=== PATIENT | female | born 1995 | race Caucasian/White ===

== ENCOUNTER → 2017-06-11 | Outpatient (CLI) | payer BC ==
[~2017-06-11] MED LIST: ASCO100T PO; B COCAP3 PO; CHOL100010 PO; MESA1.2T PO; MISCCAP80 PO; MULT-506 PO
[2017-06-11 17:14] LABS: ALT/SGPT 23 U/L (12-78); AST/SGOT 12 U/L (15-37); BLOOD UREA NITROGEN 11 mg/dl (7-18); BUN/CREATININE RATIO 18.2 (10-20); CALCIUM 8.6 mg/dl (8.5-10.1); CARBON DIOXIDE 26 mmol/L (21-32); CHLORIDE 108 mmol/L (98-107); CREATININE 0.62 mg/dl (0.60-1.20); GLUCOSE 81 mg/dl (70-99); POTASSIUM 4.5 mmol/L (3.5-5.1); SODIUM 141 mmol/L (136-145)
[2017-06-11 17:17] LABS: ALB/GLOB RATIO 0.9 (0.9-2); ALKALINE PHOSPHATASE 65 U/L (45-117); C-REACTIVE PROTEIN < 0.29 mg/dl (0-0.29)
[2017-06-11 17:28] LABS: HEMATOCRIT 25.4 % (37-47); MEAN CELL VOLUME 75.6 fL (80-100); MEAN CORPUSCULAR HEMOGLOBIN 21.1 pg (25-34); MEAN PLATELET VOLUME 8.9 fL (7.4-10.4); PLATELET COUNT 367 K/uL (130-400); RED BLOOD COUNT 3.36 M/uL (4.2-5.4); WHITE BLOOD COUNT 3.95 K/uL (4.8-10.8)
[2017-06-11 17:30] LABS: ANISOCYTOSIS PRESENT; BASO % 0.5 %; BASO ABS # 0.02 K/uL (0-0.2); COMPLETE YES; EOS % 12.4 %; HYPOCHROMIA PRESENT; IG% 0.3 %; LYMPH % 33.2 %; LYMPH ABS # 1.31 K/uL (1.2-3.4); MONO % 13.4 %; NEUT % 40.2 %; POLYCHROMASIA 1+
== END | disposition home or self-care (01) ==
LOC: C.LAB1850 15:28
PROVIDERS: ATTEND Internal Medicine
DX: K50.80 Crohn's disease of both small and large intestine without complications (principal)

== ENCOUNTER → 2018-02-11 | Outpatient (CLI) | payer OTHER ==
[~2018-02-11] MED LIST changes: -ASCO100T PO; +ASCO100T4 PO
[2018-02-11 17:17] LABS: HEMATOCRIT 37.2 % (37-47); MEAN CELL VOLUME 87.9 fL (80-100); MEAN CORPUSCULAR HEMOGLOBIN 30.7 pg (25-34); MEAN CORPUSCULAR HGB CONC 34.9 g/dl (32-36); MEAN PLATELET VOLUME 8.4 fL (7.4-10.4); PLATELET COUNT 370 K/uL (130-400); RED CELL DISTRIBUTION WIDTH CV 12.5 % (11.5-14.5); RED CELL DISTRIBUTION WIDTH SD 40.2 fL (36.4-46.3); WHITE BLOOD COUNT 12.45 K/uL (4.8-10.8)
[2018-02-11 17:48] LABS: BASO % 0.3 %; BASO ABS # 0.04 K/uL (0-0.2); EOS % 4.1 %; EOS ABS # 0.51 K/uL (0-0.5); IG# 0.13 K/uL (0.00-0.02); LYMPH ABS # 1.37 K/uL (1.2-3.4); MONO % 6.6 %; MONO ABS # 0.82 K/uL (0.11-0.59); NEUT ABS # 9.58 K/uL (1.4-6.5)
[2018-02-11 17:52] LABS: ALBUMIN 2.8 gm/dl (3.4-5.0); ALT/SGPT 17 U/L (12-78); AST/SGOT 11 U/L (15-37); BLOOD UREA NITROGEN 4 mg/dl (7-18); CARBON DIOXIDE 25 mmol/L (21-32); CREATININE 0.57 mg/dl (0.60-1.20); GLUCOSE 161 mg/dl (70-99); POTASSIUM 3.8 mmol/L (3.5-5.1); SODIUM 136 mmol/L (136-145)
[2018-02-11 17:57] LABS: ALKALINE PHOSPHATASE 83 U/L (45-117); TOTAL PROTEIN 6.7 gm/dl (6.4-8.2)
== END | disposition home or self-care (01) ==
LOC: C.LAB1850 16:19
PROVIDERS: ATTEND Physician Assistant
DX: K50.80 Crohn's disease of both small and large intestine without complications (principal)

== ENCOUNTER → 2018-04-21 | Outpatient (CLI) | payer OTHER ==
[2018-04-21 13:06] LABS: HEMATOCRIT 32.6 % (37-47); HEMOGLOBIN 9.9 g/dL (12.0-16.0); MEAN CELL VOLUME 79.5 fL (80-100); MEAN CORPUSCULAR HEMOGLOBIN 24.1 pg (25-34); MEAN CORPUSCULAR HGB CONC 30.4 g/dl (32-36); MEAN PLATELET VOLUME 8.7 fL (7.4-10.4); PLATELET COUNT 404 K/uL (130-400); RED CELL DISTRIBUTION WIDTH CV 15.2 % (11.5-14.5); RED CELL DISTRIBUTION WIDTH SD 44.5 fL (36.4-46.3); WHITE BLOOD COUNT 3.04 K/uL (4.8-10.8)
[2018-04-21 13:13] LABS: BASO % 1.6 %; BASO ABS # 0.05 K/uL (0-0.2); EOS % 6.3 %; EOS ABS # 0.19 K/uL (0-0.5); LYMPH % 31.9 %; LYMPH ABS # 0.97 K/uL (1.2-3.4); MONO % 14.5 %; MONO ABS # 0.44 K/uL (0.11-0.59); NEUT % 45.7 %; NEUT ABS # 1.39 K/uL (1.4-6.5)
[2018-04-21 13:15] LABS: ALBUMIN 3.9 gm/dl (3.4-5.0); ALKALINE PHOSPHATASE 79 U/L (45-117); ALT/SGPT 21 U/L (12-78); AST/SGOT 14 U/L (15-37); BLOOD UREA NITROGEN 9 mg/dl (7-18); CALCIUM 8.6 mg/dl (8.5-10.1); CARBON DIOXIDE 27 mmol/L (21-32); CREATININE 0.62 mg/dl (0.60-1.20); GLUCOSE 82 mg/dl (70-99); POTASSIUM 3.9 mmol/L (3.5-5.1); SODIUM 138 mmol/L (136-145); TOTAL PROTEIN 8.1 gm/dl (6.4-8.2)
== END | disposition home or self-care (01) ==
LOC: C.LAB1850 11:39
PROVIDERS: ATTEND Physician Assistant
DX: K50.80 Crohn's disease of both small and large intestine without complications (principal); D50.0 Iron deficiency anemia secondary to blood loss (chronic); E88.09 Other disorders of plasma-protein metabolism, not elsewhere classified